=== PATIENT | male | born 1950 | race Caucasian/White ===

== ENCOUNTER 2016-09-25 16:02 | Emergency (ER) | payer MEDICARE ==
--- NOTE | ~2016-09-25 | CT105 ---
[facility] A Service of [facility] RADIOLOGY TEXT RESULTS PATIENT: VALENTIN BRAR LOCATION: [place] : 48 UNIT #: [id number] AGE: [address]: CLINTON WILCOX APRN SEX: M ORDER DR: [id number] [address] [id number] MR#: [id number] Acc #: [id number] NAME: VALENTIN BRAR : 1950 SEX: M STUDY DATE/TIME: 09/26/2016 0:20 UNIT: CFTX ROOM: STUDY DESCRIPTION: CT Pelvis W Cont Attending Physician: Clinton Wilcox Aprn Ordering Physician: Clinton Wilcox Aprn Primary Care Physician: Valentin Hassan Jr., M.D. MEDICAL IMAGING REPORT This report is preliminary unless electronic signature is present EXAM CT pelvis with contrast INDICATIONS Decubitus ulcer in the pelvis, right buttock region with redness and pain. Noted this morning. PROCEDURE Contrast-enhanced CT of the pelvis. This CT examination was performed with one or more of the following radiation dose reduction techniques: automatic exposure control, adjustment of mA and/or kV according to patient size, and iterative reconstruction. COMPARISON: None FINDINGS Bladder is filled with urine. Otherwise the deep pelvic structures are unremarkable. No decubitus ulcer. Streak artifact from the left hip prosthesis degrades image quality. Nonspecific asymmetric fullness along the posterior inferior right stacy pelvis not well evaluated. No aggressive appearing bone lesion. IMPRESSION 1. No definite acute findings. No decubitus ulcer is seen. 2. Study is degraded by streak artifact from the patient's left hip prosthesis. There is an area of possible fullness along the posterior aspect of the inferior right stacy-sacrum, that is obscured and not well evaluated. [facility] A Service of [facility] RADIOLOGY TEXT RESULTS PATIENT: VALENTIN BRAR LOCATION: [place] : 48 UNIT #: [id number] AGE: [address]: CLINTON WILCOX APRN SEX: M ORDER DR: Dictated by... Gianni Russell M.D. THIS IS AN ELECTRONICALLY VERIFIED REPORT Gianni Russell M.D. at 09/27/2016 9:58 PM DARIUSZ/nicki TD: 09/26/2016 10:21 JOB #: [id number] MEDICAL IMAGING REPORT Page 1 of 1 COPY
[~2016-09-25 16:02] MED LIST: ASPIRINEC PO; BACLOFEN10 MG PO; CERTAGEN PO; FISH OIL 1,0001 CAP PO; HCTZ PO; IMDUR PO; LIPITOR PO; MICARDIS PO; NEURONTIN PO; NORCO 7.5/325 T1 TAB PO; OYSTER CALCIUM500 MG PO
[2016-09-25 19:48] LABS: BASOPHIL# 0.1 X10e3 (0-0.3); BASOPHIL% 1.3 % (0-2.5); EOSINOPHIL# 0.6 X10e3 (0-0.7); EOSINOPHIL% 9.9 % (0.0-7.0); HEMATOCRIT 33.3 % (38.0-50.0); HEMOGLOBIN 10.9 gm/dL (13.0-16.0); LYMPHOCYTE# 1.2 X10e3 (1.0-3.5); LYMPHOCYTE% 17.9 % (17.0-45.0); MEAN CELL VOLUME 97.3 FL (83-96); MEAN CORPUSCULAR HEMOGLOBIN 31.9 PG (28-34); MEAN CORPUSCULAR HGB CONC 32.8 g/dL (30-36); MEAN PLATELET VOLUME 8.1 FL (6.5-11.5); MONOCYTE# 0.6 X10e3 (0-1.0); MONOCYTE% 8.9 % (3.0-12.0); PLATELET COUNT 214 X10e3 (140-420); RED BLOOD COUNT 3.43 X10e (3.90-5.60); RED CELL DISTRIBUTION WIDTH 16.3 % (11.0-15.5); WHITE BLOOD COUNT 6.5 X10e3 (4.0-10.5)
[2016-09-25 19:49] LABS: DIFF IND NO
[2016-09-25 20:02] LABS: INR 1.6; PARTIAL THROMBOPLASTIN TIME 31.4 SECONDS (23.5-31.3); PROTHROMBIN TIME (PATIENT) 17.6 SECONDS (9.6-11.5)
[2016-09-25 21:52] LABS: ALBUMIN SERUM 3.2 g/dL (3.5-5.0); BILIRUBIN, DIRECT 0.3 mg/dL (0.0-0.2); BILIRUBIN,INDIRECT 0.5 mg/dL (0.0-0.9); BILIRUBIN,TOTAL 0.8 mg/dL (0.2-2.0); CALCIUM SERUM 8.7 mg/dL (8.4-10.2); GLOM FILT RATE Estimated 77.5 mL/min (>60); POTASSIUM 4.3 mmol/L (3.5-5.1); PROTEIN TOTAL SERUM 6.6 g/dL (6.0-8.3)
[2017-01-25] MEDS ORDERED: GABAPENTIN800 MG PO (11:11)
[2017-01-25] MEDS ORDERED: COUMADIN5 MG PO (11:11)
[2017-01-25] MEDS ORDERED: HYDROCODON-ACE1 EAC9 PO (11:11)
[2017-01-25] MEDS ORDERED: WARFARIN SODIU7.5 M1 PO (11:12)
[2017-01-25] MEDS ORDERED: ATORVASTATIN CA80 MG PO (11:13)
[2017-01-25] MEDS ORDERED: COREG12.5 MG PO (11:13)
[2017-01-25] MEDS ORDERED: SPIRONOLACTONE50 MG PO (11:13)
[2017-01-25] MEDS ORDERED: OMEPRAZOLE20 M1 PO (11:13)
[2017-01-25] MEDS ORDERED: ASPIRIN81 M2 PO (11:14)
[2017-01-25] MEDS ORDERED: ALBUTEROL17 GM INH (11:14)
== END 2016-09-26 02:03 | disposition home or self-care (01) ==
LOC: CED 16:02 → CFTX 16:02
PROVIDERS: Nurse Practitioner Family
DX: L03.317 Cellulitis of buttock (principal); I10 Essential (primary) hypertension; Z88.0 Allergy status to penicillin; Z79.01 Long term (current) use of anticoagulants; F17.210 Nicotine dependence, cigarettes, uncomplicated
CPT/HCPCS: 36415; 72193; 80048; 80076; 85025; 85610; 85730; 99284; Q9967